=== PATIENT | female | born 2005 | race Caucasian/White ===

== ENCOUNTER 2023-01-30 12:42 | Emergency (ER) | payer BC, SELFPAY ==
[2023-01-30] MEDS ORDERED: Lidocaine 1% w/Epinephrine 1:100K 20 ML VIAL ONE (13:36)
[2023-01-30] MEDS ORDERED: Dexamethasone 4 mg/ml Vial ONE (14:44)
== END 2023-01-30 14:52 | disposition home or self-care (01) ==
LOC: NAV ERS 12:42
DX: G44.209 Tension-type headache, unspecified, not intractable (principal)
CPT/HCPCS: 64405; 70450; J1100